=== PATIENT | female | born 1955 | race Caucasian/White ===

== ENCOUNTER → 2016-11-18 | Outpatient (CLI) | payer BC ==
--- NOTE | 2016-11-18 13:59 | MM ---
Reason for exam: screening (asymptomatic). Last mammogram was performed 1 year and 1 month ago. History: Patient is postmenopausal and had first child at age 37. Taking estrogen for 2 years. Taking progesterone for 2 years. Physical Findings: A clinical breast exam by your physician is recommended on an annual basis and results should be correlated with mammographic findings. MG Screening Mammo w CAD Bilateral CC and MLO view(s) were taken. Prior study comparison: October 23, 2015, bilateral MG screening mammo w CAD. September 22, 2013, bilateral MG screening mammo w CAD. The breast tissue is heterogeneously dense. This may lower the sensitivity of mammography. No suspicious calcifications are seen. Focal asymmetry central upper right MLO view, 5.8cm from nipple. This finding is changed when compared with previous exams. ASSESSMENT: Incomplete: need additional imaging evaluation, BI-RAD 0 RECOMMENDATION: Special view mammogram of the right breast. If lesion persists on supplemental views, image directed ultrasound is recommended. [facility] will attempt to contact patient to return for supplemental views and ultrasound if indicated.
--- NOTE | 2016-11-18 16:59 | BD ---
EXAMINATION TYPE: MG DEXA axial skeleton. DATE OF EXAM: 11/18/2016 CLINICAL HISTORY: 61-year-old female osteoporosis Height: 59.6 inches Weight: 135 FRAX RISK QUESTIONS: Alcohol (3 or more units per day): no Family History (Parent hip fracture): no Glucocorticoids (More than 3mos): no (Ex: prednisone, prednisolone, methylprednisolone, dexamethasone, and hydrocortisone). History of Fracture in Adulthood: no Secondary Osteoporosis: 1. Type 1 Diabetes: no 2. Hyperthyroidism: no 3. Menopause before 45: no 4. Malnutrition: no 5. Chronic liver disease: no Rheumatoid Arthritis: unsure, just tested Current Tobacco Use: no RISK FACTORS HISTORY OF: Hip Fracture (Right/Left): no Spine Fracture: no History of Wrist Fracture: no Surgery to Spine/Hip(right/left)/Wrist (right/left): no Family History of Osteoporosis: yes Active: yes Diet low in dairy products/other sources of calcium: at least one serving a day Postmenopausal woman: yes Take estrogen and/or progesterone medications: not now How long: age [age] Lost more than 2 inches in height since high school: no Frequent falls: no Poor Health: no Hyperparathyroidism: no Adrenal Insufficiency: no MEDICATIONS: Prednisone or other steroids: no Thyroid Medications: no Osteoporosis Medications: yes Which medication: Fosamax How Long: one year ( previously used Fosamax age 58-59) Additional Medications: calcium with Vitamin D; multivitamin, cholesterol EXAM MEASUREMENTS: Bone mineral densitometry was performed using the [employer] System. Bone mineral density as measured about the Lumbar spine is: ----- L1-L4(G/cm2): 1.010 T Score Values are as follows: ----- L2: -2.3 ----- L3: -1.3 ----- L4: -1.1 ----- L1-L4: -1.4 Bone mineral density has: Decreased -0.6% since study of: 10/23/2015 Bone mineral density about the R hip (g/cm2): 0.720 Bone mineral density about the L hip (g/cm2): 0.736 T Score values are as follows: -----R Neck: -2.3 -----L Neck: -2.2 -----R Total: -1.6 -----L Total: -1.6 Bone mineral density has: Increased 0.9% since study of: 10/23/2015 IMPRESSION: Osteopenia (T Score between -2.5 and -1 as noted by T score values There is slightly increased risk of fracture and the patient may be considered for treatment. Re-Screen 2-5 years. NOTE: T-SCORE=SD OF THE YOUNG ADULT MEAN.
== END | disposition home or self-care (01) ==
LOC: RADMAMWWP 08:23
PROVIDERS: ATTEND Family Medicine
DX: Z12.31 Encounter for screening mammogram for malignant neoplasm of breast (principal); M85.80 Other specified disorders of bone density and structure, unspecified site; R92.2 Inconclusive mammogram
CPT/HCPCS: 77080; G0202

== ENCOUNTER → 2016-11-27 | Outpatient (CLI) | payer BC ==
--- NOTE | 2016-11-27 14:06 | MM ---
Reason for exam: additional evaluation requested from abnormal screening. Last mammogram was performed less than 1 month ago. History: Patient is postmenopausal and had first child at age 37. Taking estrogen for 2 years. Taking progesterone for 2 years. Physical Findings: Nurse did not find any significant physical abnormalities on exam. MG Work Up Mamm w CAD RT LM, spot compression CC, and spot compression MLO view(s) were taken of the right breast. Prior study comparison: November 18, 2016, bilateral MG screening mammo w CAD. October 23, 2015, bilateral MG screening mammo w CAD. The breast tissue is heterogeneously dense. This may lower the sensitivity of mammography. Previously described abnormality resolves on additional views. These results were verbally communicated with the patient and result sheet given to the patient on 11/27/16. ASSESSMENT: Negative, BI-RAD 1 RECOMMENDATION: Routine screening mammogram of both breasts in 1 year.
== END | disposition home or self-care (01) ==
LOC: RADMAMWWP 10:35
PROVIDERS: ATTEND Family Medicine
DX: R92.8 Other abnormal and inconclusive findings on diagnostic imaging of breast (principal)

== ENCOUNTER → 2017-12-14 | Outpatient (CLI) | payer BC ==
--- NOTE | 2017-12-15 11:03 | MM ---
Reason for exam: screening (asymptomatic). Last mammogram was performed 1 year and 1 month ago. History: Patient is postmenopausal and had first child at age 37. Taking estrogen for 2 years. Taking progesterone for 2 years. Physical Findings: A clinical breast exam by your physician is recommended on an annual basis and results should be correlated with mammographic findings. MG Screening Mammo w CAD Bilateral CC and MLO view(s) were taken. Prior study comparison: November 27, 2016, right breast MG work up mamm w CAD RT. November 18, 2016, bilateral MG screening mammo w CAD. The breast tissue is heterogeneously dense. This may lower the sensitivity of mammography. Finding: There are typically benign round, regional calcifications in the upper outer quadrant of the left breast. There is no discrete abnormality. ASSESSMENT: Benign, BI-RAD 2 RECOMMENDATION: Routine screening mammogram of both breasts in 1 year.
== END | disposition home or self-care (01) ==
LOC: RADMAMWWP 09:06
PROVIDERS: ATTEND Family Medicine
DX: Z12.31 Encounter for screening mammogram for malignant neoplasm of breast (principal)
CPT/HCPCS: 77067

== ENCOUNTER → 2018-12-16 | Outpatient (CLI) | payer BC ==
--- NOTE | 2018-12-17 09:15 | MM ---
Reason for exam: screening (asymptomatic). Last mammogram was performed 1 year ago. History: Patient is postmenopausal and had first child at age 37. Taking estrogen for 2 years. Taking progesterone for 2 years. Physical Findings: A clinical breast exam by your physician is recommended on an annual basis and results should be correlated with mammographic findings. MG Screening Mammo w CAD Bilateral CC and MLO view(s) were taken. Prior study comparison: December 14, 2017, bilateral MG screening mammo w CAD. November 27, 2016, right breast MG work up mamm w CAD RT. The breast tissue is heterogeneously dense. This may lower the sensitivity of mammography. Stable scattered benign calcifications. There is no discrete abnormality. No significant changes when compared with prior studies. ASSESSMENT: Benign, BI-RAD 2 RECOMMENDATION: Routine screening mammogram of both breasts in 1 year.
--- NOTE | 2018-12-17 17:36 | BD ---
EXAMINATION TYPE: Axial Bone Density DATE OF EXAM: 12/16/2018 COMPARISON: 2017 CLINICAL HISTORY: Height: 59.5 inches Weight: 130 FRAX RISK QUESTIONS: Alcohol (3 or more units per day): no Family History (Parent hip fracture): no Glucocorticoids (More than 3mos): no (Ex: prednisone, prednisolone, methylprednisolone, dexamethasone, and hydrocortisone). History of Fracture in Adulthood: no Secondary Osteoporosis: 1. Type 1 Diabetes: no 2. Hyperthyroidism: no 3. Menopause before 45: no 4. Malnutrition: no 5. Chronic liver disease: no Rheumatoid Arthritis: no Current Tobacco Use: no RISK FACTORS HISTORY OF: Family History of Osteoporosis: yes Active: yes Diet low in dairy products/other sources of calcium: somewhat; servings several times a week Postmenopausal woman: yes Take estrogen and/or progesterone medications: not now How lon-52 Lost more than 2 inches in height since high school: no Frequent falls: no Poor Health: no Hyperparathyroidism: no Adrenal Insufficiency: no MEDICATIONS: Prednisone or other steroids: no Thyroid Medications: no Osteoporosis Medications: yes Which medication: Fosamax How Lonat least a couple years Additional Medications: calcium, cholesterol med Additional History: EXAM MEASUREMENTS: Bone mineral densitometry was performed using the [employer] System. Bone mineral density as measured about the Lumbar spine is: ----- L1-L4(G/cm2): 1.010 T Score Values are as follows: ----- L2: -2.0 ----- L3: -1.0 ----- L4: -1.1 ----- L1-L4: -1.4 Bone mineral density has: Increased 2.0% since study of: 11/18/2016 Bone mineral density about the R hip (g/cm2): 0.731 Bone mineral density about the L hip (g/cm2): 0.751 T Score values are as follows: -----R Neck: -2.2 -----L Neck: -2.1 -----R Total: -1.7 -----L Total: -1.4 Bone mineral density has: Increased 0.9% since study of: 11/18/2016 IMPRESSION: Osteopenia (T Score between -2.5 and -1). There is slightly increased risk of fracture and the patient may be considered for treatment. Re-Screen 2-5 years. NOTE: T-SCORE=SD OF THE YOUNG ADULT MEAN.
== END ==
LOC: RADMAMWWP 09:02
PROVIDERS: ATTEND Family Medicine
DX: Z12.31 Encounter for screening mammogram for malignant neoplasm of breast (principal); M85.80 Other specified disorders of bone density and structure, unspecified site
CPT/HCPCS: 77067; 77080

== ENCOUNTER → 2020-05-09 | Outpatient (CLI) | payer MEDICARE ==
--- NOTE | 2020-05-10 14:10 | MM ---
Reason for exam: screening (asymptomatic). Last mammogram was performed 1 year and 5 months ago. History: Patient is postmenopausal and had first child at age 37. Taking estrogen for 2 years. Taking progesterone for 2 years. Physical Findings: A clinical breast exam by your physician is recommended on an annual basis and results should be correlated with mammographic findings. MG Screening Mammo w CAD Bilateral CC and MLO view(s) were taken. Prior study comparison: December 16, 2018, bilateral MG screening mammo w CAD. December 14, 2017, bilateral MG screening mammo w CAD. The breast tissue is heterogeneously dense. This may lower the sensitivity of mammography. There is chronic nodularity in the left breast. Scattered punctate calcifications redemonstrated on the left. No significant changes when compared with prior studies. ASSESSMENT: Benign, BI-RAD 2 RECOMMENDATION: Routine screening mammogram of both breasts in 1 year.
== END | disposition home or self-care (01) ==
LOC: RADMAMWWP 15:44
PROVIDERS: ATTEND Family Medicine
DX: Z12.31 Encounter for screening mammogram for malignant neoplasm of breast (principal)
CPT/HCPCS: 77067

== ENCOUNTER → 2021-01-30 | Outpatient (CLI) | payer MEDICARE ==
--- NOTE | 2021-01-31 14:11 | BD ---
EXAMINATION TYPE: Axial Bone Density DATE OF EXAM: 01/30/2021 COMPARISON: NONE CLINICAL HISTORY: Height: 4 FT 11 IN Weight: 141 FRAX RISK QUESTIONS: Alcohol (3 or more units per day): NO Family History (Parent hip fracture): NO Glucocorticoids (More than 3mos): NO (Ex: prednisone, prednisolone, methylprednisolone, dexamethasone, and hydrocortisone). History of Fracture in Adulthood: NO Secondary Osteoporosis: 1. Type 1 Diabetes: NO 2. Hyperthyroidism: NO 3. Menopause before 45: NO 4. Malnutrition: NO 5. Chronic liver disease: NO Rheumatoid Arthritis: NO Current Tobacco Use: NO RISK FACTORS HISTORY OF: Surgery to Spine/Hip(right/left)/Wrist (right/left): NO Family History of Osteoporosis: YES Active: YES Diet low in dairy products/other sources of calcium: NO Postmenopausal woman: AGE 52 Take estrogen and/or progesterone medications: TOOK HRT FOR APPOX 5 YEARS Lost more than 2 inches in height since high school: NO MEDICATIONS: Additional Medications: SIMVASTATAN, Additional History: CARPAL TUNNEL SURG RT WRIST EXAM MEASUREMENTS: Bone mineral densitometry was performed using the [employer] System. Bone mineral density as measured about the Lumbar spine is: ----- L1-L4(G/cm2): 1.055 T Score Values are as follows: ----- L2: -1.7 ----- L3: -0.9 ----- L4: -0.6 ----- L1-L4: -1.0 Bone mineral density has:INCREASED 3.8 %SINCE STUDY OF 2019 Bone mineral density about the R hip (g/cm2): 0.701 Bone mineral density about the L hip (g/cm2): 0.739 T Score values are as follows: -----R Neck: -2.4 -----L Neck: -2.1 -----R Total: -1.9 -----L Total: -1.6 Bone mineral density has: DECREASED -3.2 % SINCE STUDY 2019 IMPRESSION: Osteopenia (T Score between -2.5 and -1). There is slightly increased risk of fracture and the patient may be considered for treatment. Re-Screen 2-5 years. NOTE: T-SCORE=SD OF THE YOUNG ADULT MEAN.
== END | disposition home or self-care (01) ==
LOC: RADBDWWP 15:23
PROVIDERS: ATTEND Obstetrics & Gynecology
DX: M85.89 Other specified disorders of bone density and structure, multiple sites (principal); Z78.0 Asymptomatic menopausal state
CPT/HCPCS: 77080

== ENCOUNTER → 2022-08-26 | Outpatient (CLI) | payer MEDICARE ==
--- NOTE | 2022-08-27 09:25 | MM ---
Reason for Exam: Screening (asymptomatic). Last mammogram was performed 1 year(s) and 3 month(s) ago. Patient History: Menarche at age 12. First Full-Term at age 37. Late child-bearing (after 30). Postmenopausal. Currently using Estrogen, for 2 years. Currently using Progesterone, for 2 years. Risk Values: Jennie 5 year model risk: 2.3%. NCI Lifetime model risk: 7.9%. Prior Study Comparison: 12/16/2018 Bilateral Screening Mammogram, [facility]. 05/09/2020 Bilateral Screening Mammogram, [facility]. 06/11/2021 Bilateral Screening Mammogram, [facility]. Tissue Density: The breast tissue is heterogeneously dense. This may lower the sensitivity of mammography. Findings: Analyzed By CAD. There are stable grouped and scattered tiny benign-appearing round calcifications throughout the left breast. There are 2 new groups of indistinct calcifications in the left breast that warrant further workup. Overall Assessment: Incomplete: need additional imaging evaluation, BI-RAD 0 Management: Special View Mammogram of the left breast. Return for additional spot magnification and true lateral views left breast.. Patient should continue monthly self-breast exams. A clinical breast exam by your physician is recommended on an annual basis. This exam should not preclude additional follow-up of suspicious palpable abnormalities. Note on Jennie scores and lifetime risk: 1. A Jennie score greater than 3% is considered moderate risk. If this is the case, consider specialist referral to assess eligibility for a risk reducing agent. 2. If overall lifetime risk for the development of breast cancer is 20% or higher, the patient may qualify for future screening with alternating mammogram and breast MRI. Electronically signed and approved by: Eduardo Penn M.D.
== END | disposition home or self-care (01) ==
LOC: RADMAMWWP 10:27
PROVIDERS: ATTEND Obstetrics & Gynecology
DX: Z12.31 Encounter for screening mammogram for malignant neoplasm of breast (principal); Z78.0 Asymptomatic menopausal state
CPT/HCPCS: 77063; 77067

== ENCOUNTER → 2022-08-29 | Outpatient (CLI) | payer MEDICARE ==
--- NOTE | 2022-09-01 15:05 | MM ---
EXAM: MG 3D work up w/cad LT DATE OF EXAM: 08/29/2022 1:40 PM COMPARISON STUDIES: 05/09/2020 Bilateral Screening Mammogram, [facility]. 06/11/2021 Bilateral Screening Mammogram, [facility]. 08/26/2022 Bilateral MG 3D screening mammo w/cad, [facility]. PATIENT HISTORY: Menarche at age 12. First Full-Term at age 37. Late child-bearing (after 30). Postmenopausal. Currently using Estrogen, for 2 years. Currently using Progesterone, for 2 years. RISK CALCULATION: Jennie 5 year model risk: 2.3%. NCI Lifetime model risk: 7.9%. TISSUE DENSITY: Heterogeneously dense FINDINGS: Chronic nodularity within the left breast. Grouped coarse heterogenous calcifications within the posterior upper outer quadrant of the left breast. Additional grouped coarse heterogenous calcifications within the outer lower left breast at middle depth. Additional benign appearing calcifications within the left breast. No new suspicious mass within the left breast. ASSESSMENT: 4 - Suspicious RECOMMENDATION: 1. Stereotactic Core Biopsy Left immediate. COMMENTS: 2 site stereotactic core biopsy of the left breast is recommended. A clinical breast exam by your physician is recommended on an annual basis and results should be correlated with mammographic findings. This exam should not preclude additional follow-up of suspicious palpable abnormalities. Results were given to the patient verbally at the time of exam. Called Dr. Luther's office with mammographic findings and has scheduled an appointment for the patient for 09/24/22 at 4:[address] Banerjee. Biopsy scheduled for 09/15/22 at 10:30. REPORT FAXED TO DR. BANERJEE ON 09/01/22. [facility]OSPITALArianna
== END | disposition home or self-care (01) ==
LOC: RADMAMWWP 13:16
PROVIDERS: ATTEND Obstetrics & Gynecology
DX: N63.20 Unspecified lump in the left breast, unspecified quadrant (principal); R92.8 Other abnormal and inconclusive findings on diagnostic imaging of breast; Z78.0 Asymptomatic menopausal state
CPT/HCPCS: 77065; G0279; 77061

== ENCOUNTER → 2022-09-15 | Day surgery (SDC) | payer MEDICARE ==
--- NOTE | 2022-09-17 08:55 | MM ---
Risk Values: Jennie 5 year model risk: 2.3%. NCI Lifetime model risk: 7.9%. Prior Study Comparison: 06/11/2021 Bilateral Screening Mammogram, [facility]. 08/26/2022 Bilateral MG 3D screening mammo w/cad, [facility]. 08/29/2022 Left MG 3D work up w/cad , [facility]. Pathology Description: Approach: CC FB Needle Type: Eviva Cores: 7 Skin Nicks: 1 Gauge: 9 Pathology Description: Location: posterior. Approach: Lateral to Medial Needle Type: Eviva Cores: 13 Skin Nicks: 1 Gauge: 9 The procedure of stereotactic guided core biopsy was explained to the patient. Benefits, alternatives, and risks were discussed. An informed consent was then obtained. The 2 sites of grouped microcalcifications are identified and targeted for biopsy. 1.) 9:00 far posterior: The shortness pathway for biopsy was chosen. Shortness pathway was a lateral approach. I performed the localization followed by the remainder of the procedure. A vacuum assisted biopsy gun was used to obtain 13 core samples. There was inadvertent development of a 4 cm hematoma. Hemostasis was obtained with prolonged compression. A top hat clip was deployed. 2.) Approximately 5:00, middle depth: The shortness pathway for biopsy was chosen. Shortness pathway was an inferior approach. I performed the localization followed by the remainder of the procedure. A vacuum assisted biopsy gun was used to obtain 7 core samples. A barbell clip was deployed. The patient tolerated the procedure well without any immediate complication. The patient was kept in the radiology department for short stay after the procedure and then discharged home in stable condition. Targeted calcifications are identified in specimen mammogram. Post biopsy mammogram shows both clips to appear in satisfactory position relative to the targeted area of concern on the preprocedure images. IMPRESSION: SUCCESSFUL, STEREOTACTIC GUIDED CORE BIOPSY OF 2 SITES OF MICROCALCIFICATIONS IN THE LEFT BREAST. POSTERIOR BIOPSY SITE HAD THE INADVERTENT DEVELOPMENT OF A 4 CM HEMATOMA. Pathology Results: Result: Benign, Fibroadenomatoid hyperplasia. A. LEFT BREAST, SITE A, POSTERIOR, STEREOTACTIC NEEDLE CORE BIOPSY: Fibroadenomatoid hyperplasia with calcifications. Negative for malignancy. B. LEFT BREAST, SITE B, ANTERIOR, STEREOTACTIC NEEDLE CORE BIOPSY: Fibroadenomatoid hyperplasia and background fibrocystic changes including focal columnar cell change with calcifications. Negative for malignancy. Overall Assessment: Benign Management: Diagnostic Mammogram of both breasts in 6 months. Electronically signed and approved by: Ashvin Morrison M.D. Radiologist
== END ==
LOC: RADMAMWWP 09:58
PROVIDERS: ATTEND Surgery
DX: D24.2 Benign neoplasm of left breast (principal)
CPT/HCPCS: 88305; 19081; 19082; A4648

== ENCOUNTER → 2023-03-31 | Outpatient (CLI) | payer MEDICARE ==
--- NOTE | 2023-03-31 10:55 | MM ---
Reason for Exam: Follow-up at short interval from prior study. Last screening mammogram was performed 7 month(s) ago. Patient History: Menarche at age 12. First Full-Term at age 37. Late child-bearing (after 30). Postmenopausal. Previous Hyperplasia w/o Atypia at age 67. Currently using Estrogen, for 2 years. Currently using Progesterone, for 2 years. 09/15/2022, MG stereo VAD BX addl LT on the Left side. 09/15/2022, Benign MG stereo VAD BX LT on the left side. Risk Values: Jennie 5 year model risk: 3.5%. NCI Lifetime model risk: 11.2%. Prior Study Comparison: 06/11/2021 Bilateral Screening Mammogram, [facility]. 08/26/2022 Bilateral MG 3D screening mammo w/cad, [facility]. 08/29/2022 Left MG 3D work up w/cad LT, [facility]. Tissue Density: Left: The breast tissue is heterogeneously dense. This may lower the sensitivity of mammography. Findings: Analyzed By CAD. 2 microclip in the left breast from patient's recent biopsy. Residual punctate calcifications remain unchanged. Areas of asymmetric density are unchanged as well. No significant change from prior exams. Overall Assessment: Benign, BI-RAD 2 Management: Screening Mammogram of both breasts in 6 months. See note below in regards to patient's increased 5 year Jennie score. Results were given to the patient verbally at the time of exam. Patient should continue monthly self-breast exams. A clinical breast exam by your physician is recommended on an annual basis. This exam should not preclude additional follow-up of suspicious palpable abnormalities. Note on Jennie scores and lifetime risk: 1. A Jennie score greater than 3% is considered moderate risk. If this is the case, consider specialist referral to assess eligibility for a risk reducing agent. 2. If overall lifetime risk for the development of breast cancer is 20% or higher, the patient may qualify for future screening with alternating mammogram and breast MRI. Electronically signed and approved by: Ashvin Morrison M.D. Radiologist
--- NOTE | 2023-03-31 18:39 | BD ---
EXAMINATION TYPE: Axial Bone Density DATE OF EXAM: 03/31/2023 CLINICAL HISTORY: 68 years old Female. ICD-10 CODE: M85.88 Height: 4 ft 11 in Weight: 145 FRAX RISK QUESTIONS: Alcohol (3 or more units per day): no Family History (Parent hip fracture): no Glucocorticoids (More than 3mos): no (Ex: prednisone, prednisolone, methylprednisolone, dexamethasone, and hydrocortisone). History of Fracture in Adulthood: no Secondary Osteoporosis: ` 1. Type 1 Diabetes: no 2. Hyperthyroidism: no 3. Menopause before 45: no 4. Malnutrition: no 5. Chronic liver disease: no Rheumatoid Arthritis: yes Current Tobacco Use: no RISK FACTORS HISTORY OF: Surgery to Spine/Hip(right/left)/Wrist (right/left): no Family History of Osteoporosis: no Active: yes Diet low in dairy products/other sources of calcium: no Postmenopausal woman: yes Take estrogen and/or progesterone medications: none now Lost more than 2 inches in height since high school: no Frequent falls: no Poor Health: good Hyperparathyroidism: no Adrenal Insufficiency: no MEDICATIONS: Additional Medications: Atorvastatin, Additional History: EXAM MEASUREMENTS: Bone mineral densitometry was performed using the [employer]. Bone mineral density as measured about the Lumbar spine is: ----- L1-L4(G/cm2): 1.091 T Score Values are as follows: ----- L1: -1.3 ----- L2: -1.0 ----- L3: -0.5 ----- L4: -0.6 ----- L1-L4: -0.7 Z Score Values are as follows: ----- L1: 0.4 ----- L2: 0.6 ----- L3: 1.1 ----- L4: 1.0 ----- L1-L4: 0.9 Bone mineral density has: increased 3.4 % since study of: 2020 Bone mineral density about the R hip (g/cm2):0.692 Bone mineral density about the L hip (g/cm2): 0.713 T Score values are as follows: -----R Neck: -2.5 -----L Neck: -2.3 -----R Total: -2.0 -----L Total: -1.7 Z Score values are as follows: -----R Neck: -0.9 -----L Neck: -0.8 -----R Total: -0.7 -----L Total: -0.4 Bone mineral density has: decreased -2.2 % since study of: 2020 FRAX%s: The graph provided illustrates a 13.9 % chance for a major osteoporotic fx and a 3.2 % chance for the hips probability for fx in 10 years time. IMPRESSION: Osteoporosis (T Score less than -2.5). There is increased fracture risk and therapy is usually indicated based on age. Re-Screen 1-2 years. NOTE: T-SCORE=SD OF THE YOUNG ADULT MEAN.
== END | disposition home or self-care (01) ==
LOC: RADMAMWWP 10:13
PROVIDERS: ATTEND Surgery
DX: R92.332 Mammographic heterogeneous density, left breast (principal); M81.0 Age-related osteoporosis without current pathological fracture; M85.89 Other specified disorders of bone density and structure, multiple sites; Z78.0 Asymptomatic menopausal state
CPT/HCPCS: 77080; 77065; G0279; 77061

== ENCOUNTER → 2023-03-31 | Outpatient (CLI) | payer MEDICARE | END | disposition home or self-care (01) | LOC: RADBDWWP 10:09 | PROVIDERS: ATTEND Obstetrics & Gynecology | DX: Z53.9 Procedure and treatment not carried out, unspecified reason (principal) ==

== ENCOUNTER → 2024-01-13 | Outpatient (CLI) | payer MEDICARE ==
--- NOTE | 2024-01-24 13:34 | MM ---
Reason for Exam: Screening (asymptomatic). Last mammogram was performed 1 year(s) and 4 month(s) ago. Patient History: Menarche at age 12. First Full-Term at age 37. Late child-bearing (after 30). Postmenopausal. Previous Hyperplasia w/o Atypia at age 67. Currently using Estrogen, for 2 years. Currently using Progesterone, for 2 years. 09/15/2022, MG stereo VAD BX addl LT on the Left side. 09/15/2022, Benign MG stereo VAD BX LT on the left side. Risk Values: Jennie 5 year model risk: 3.5%. NCI Lifetime model risk: 11.2%. Prior Study Comparison: 08/26/2022 Bilateral MG 3D screening mammo w/cad, [facility]. 08/29/2022 Left MG 3D work up w/cad LT, [facility]. 03/31/2023 Left MG 3D diag mammo w/cad LT, [facility]. Tissue Density: The breasts are extremely dense, which lowers the sensitivity of mammography. Findings: Analyzed By CAD. The pattern is symmetrical. No significant interval change evident. No suspicious groups of microcalcifications, spiculated or lobular masses, architectural distortion or other secondary signs of malignancy are mammographically apparent. Overall Assessment: Negative, BI-RAD 1 Management: Screening Mammogram of both breasts in 1 year. A negative mammogram report should not preclude additional follow up of suspicious palpable abnormalities. Patient should continue monthly self breast exam. A clinical breast exam by your physician is recommended on an annual basis and results should be correlated with mammographic findings. Note on Jennie scores and lifetime risk: 1. A Jennie score greater than 3% is considered moderate risk. If this is the case, consider specialist referral to assess eligibility for a risk reducing agent. 2. If overall lifetime risk for the development of breast cancer is 20% or higher, the patient may qualify for future screening with alternating mammogram and breast MRI. [facility], , 01/24/2024 1:31 PM. Electronically signed and approved by: Orion Tay D.O. Radiologis
== END | disposition home or self-care (01) ==
LOC: RADMAMWWP 15:54
PROVIDERS: ATTEND Family Medicine
CPT/HCPCS: 77063; 77067

== ENCOUNTER → 2024-04-05 | Outpatient (CLI) | payer MEDICARE ==
[2024-04-05 10:14] VITALS: BP 148/78; PULSE 67; RESP 16; TEMP 98.1
--- NOTE | 2024-04-05 11:09 | P.HPOB ---
History of Present Illness H&P Date: 04/05/24 Chief Complaint: The patient is here for her routine gynecologic exam. This is a 69-year-old G1, P1 with an LMP of 2006. The patient is here to establish with this office. It has been about 1 year since her last pelvic exam. She previously saw Dr. Luther for her gynecologic care. She is without gynecologic complaints and denies any postmenopausal bleeding. She has had regular cervical screening over the years and denies any history of any neoplasia. Review of Systems The patient has lost 10 pounds over the last year. This has been done through diet and exercise. She denies respiratory, cardiac, or G.I. problems. Past Medical History Past Medical History: Hyperlipidemia Additional Past Medical History / Comment(s): Osteoporosis status post 5 years use of Fosamax ending in approximately 2019. 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 History of Any Multi-Drug Resistant Organisms: None Reported Past Surgical History: Orthopedic Surgery Additional Past Surgical History / Comment(s): carpel tunnel right wrist. Colonoscopy in 2014(next after 10yr). Past Anesthesia/Blood Transfusion Reactions: No Reported Reaction Past Psychological History: No Psychological Hx Reported Smoking Status: Never smoker Past Alcohol Use History: Occasional (About 2 drinks per month.) Past Drug Use History: None Reported Additional History: She is a since 2021. 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 - Past Family History Mother Family Medical History: Hyperlipidemia Additional Family Medical History / Comment(s): . A maternal grand parent had a stroke. Father Family Medical History: Myocardial Infarction ([place]) Additional Family Medical History / Comment(s): . Medications and Allergies Home Medications Medication Instructions Recorded Confirmed Type Simvastatin [Zocor] 20 mg PO HS 09/11/22 04/05/24 History Allergies Allergy/AdvReac Type Severity Reaction Status Date / Time No Known Allergies Allergy Verified 04/05/24 10:12 Exam Vital Signs Temp Pulse Resp BP Pulse Ox 04/05/24 10:12 98.1 F 67 16 148/78 98 Intake and Output 04/04/24 04/05/24 04/05/24 22:59 06:59 14:59 Other: Weight 72.575 kg Height 4 feet 11 inches, weight 140 pounds, BMI 32.3. This is a well-developed well-nourished white female who is alert and oriented times 3 in no acute distress. HEENT: Within normal limits. NECK: Supple without mass or thyromegaly. CHEST AND LUNGS: Clear to auscultation. HEART: Regular rate and rhythm. BREASTS: Are without mass or discharge. There is bilateral nipple inversion which the patient states she has had for many years. AXILLARY EXAM: Negative for adenopathy. BACK: Negative for CVA tenderness. ABDOMEN: Soft, nontender, without palpable masses. PELVIC EXAM: Normal external genitalia with mild atrophy. Cervix and vagina appear normal with mild to moderate atrophy. Cervix is somewhat stenotic secondary to atrophy. There is no unusual discharge. There is no evidence of prolapse. The uterus is midposition, nongravid size and nontender. There are no palpable adnexal masses or tenderness. RECTAL EXAM: Rectovaginal exam is negative for mass or tenderness and is negative for occult blood. EXTREMITIES: Nontender. IMPRESSION: 1. 69-year-old menopausal female with normal gynecologic exam. 2. History of osteoporosis status post 5 years use of Fosamax ending in 2019. 3. Elevated blood pressure PLAN: 1. Pap smear was performed. If this is negative we will plan on discontinuing Pap smears. This is based on her age, history of no cervical neoplasia and adequate screening in the past, per the patient. 2. Self breast awareness was discussed with the patient. We have also discussed symptoms associated with inflammatory breast cancer. 3. Screening mammogram was done on 01/13/2024 and was benign. She will repeat this after 1 year. 4. Osteoporosis prevention was discussed. I have stressed the importance of adequate calcium, vitamin D and regular exercise. Recommended amounts of c alcium and vitamin D were also discussed. We will plan on repeating the bone density test in 1 year since she had one done on 03/31/2023. 5. We have discussed her elevated blood pressure. I have recommended that she check her own blood pressures at home on a regular basis since she does have a blood pressure cuff. She will follow-up with her PCP for blood pressure elevations 6. She was advised to return in one year for her annual well woman exam.
== END ==
LOC: WWCWWP 09:50
PROVIDERS: ATTEND Obstetrics & Gynecology
DX: Z01.419 Encounter for gynecological examination (general) (routine) without abnormal findings (principal); I10 Essential (primary) hypertension; M81.0 Age-related osteoporosis without current pathological fracture

== ENCOUNTER → 2024-10-04 | Outpatient (CLI) | payer MEDICARE ==
--- NOTE | 2024-10-04 08:49 | P.PN ---
Progress Note - Text Progress Note Date: 10/04/24 I spoke with the patient by phone on 09/28/2024. 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 She previously saw Dr. Trejo followed by Dr. Luther for her gynecologic care. Records from that office: 06/19/09 pap neg, 07/08/10 pap neg, 07/22/11 pap neg, 09/15/12 cotest neg/neg, 10/23/15 pap neg, 11/17/18 pap neg, 01/16/21 cotest neg/neg, 01/27/23 pap neg. Her Pap smear here on 04/05/2024 was negative. She has no history of cervical neoplasia. Based on her age and history, Pap smears will be discontinued.
== END ==
LOC: WWCWWP 08:42
PROVIDERS: ATTEND Obstetrics & Gynecology
DX: Z01.419 Encounter for gynecological examination (general) (routine) without abnormal findings (principal)